=== PATIENT | female | born 1965 | race Asian ===

== ENCOUNTER 2017-12-11 11:35 | Inpatient (IN) | payer MEDICAID ==
[~2017-12-11] VITALS: Ht 167.6 cm; Wt 75.0 kg
[2017-12-11] MEDS ORDERED: SODIUM CHLORIDE 0.9% 1,000 ML IV ONE (11:54)
[2017-12-11 12:11] LABS: Basophils # (auto) 0 uL; Basophils % (auto) 0.5 % (0.0-2.0); Eosinophils # (auto) 0.1 uL; Eosinophils % (auto) 2.4 % (0.0-7.0); Hematocrit 37.3 % (36.0-46.0); Hemoglobin 12.8 g/dL (12.2-16.2); Lymphocytes # (auto) 1.7 uL; Lymphocytes % (auto) 36.4 % (10.0-50.0); Mean Corpuscular Hemoglobin 31.2 pg (28.0-32.0); Mean Corpuscular Hgb Conc. 34.4 g/dL (32.0-36.0); Mean Corpuscular Volume 90.7 fL (80.0-100.0); Monocytes # (auto) 0.4 uL; Neutrophils # (auto) 2.5 uL; Neutrophils % (auto) 52.7 % (37.0-80.0); Nucleated Red Blood Cells % 0.1 %; Platelet Count (auto) 210 10^3/uL (140-450); Red Blood Cells 4.11 10^6/uL (4.0-5.20); Red Cell Distribution Width 13.1 % (11.8-14.3); White Blood Cell 4.7 10^3/uL (4.4-10.8)
[2017-12-11] MEDS ORDERED: NALOXONE HCL 0.4 MG/ML VIAL ONE (12:19)
[2017-12-11 12:24] LABS: INR 0.95 (0.9-1.15); Partial Thromboplastin Time 24.2 sec (23.78-33.04); Prothrombin Time 10.2 sec (9.27-12.13)
[2017-12-11 12:30] LABS: Alanine Aminotransferase 44 U/L (13-56); Albumin 3.7 g/dL (3.4-5.0); Alkaline Phosphatase 95 U/L (45-117); Anion Gap 8 (5-15); Aspartate Aminotransferase 25 U/L (15-37); Bilirubin, Total 0.9 mg/dL (0.2-1.0); Blood Alcohol < 3.0 mg/dL (0-5); Blood Urea Nitrogen 11 mg/dL (7-18); Calcium 8.4 mg/dL (8.5-10.1); Carbon Dioxide 27 mmol/L (21-32); Chloride 106 mmol/L (98-107); GFR African American 132 mL/min; GFR Non-African American 109 mL/min; Glucose 118 mg/dL (74-106); Magnesium 2.5 mg/dL (1.6-2.6); Potassium 3.8 mmol/L (3.5-5.1); Sodium 141 mmol/L (136-145); Total Protein 7.1 g/dL (6.4-8.2)
[2017-12-11] MEDS ORDERED: NALOXONE HCL 0.4 MG/ML VIAL IV ONE (12:30)
[2017-12-11] MEDS ORDERED: FLUMAZENIL 0.1 MG/ML INJ 10ML MDV IV ONE (12:45)
[2017-12-11] MEDS ORDERED: SODIUM CHLORIDE 0.9% 500 ML IV ONE (12:45)
[2017-12-11 13:09] LABS: Urine Bacteria NONE SEEN /hpf (None Seen); Urine Blood Negative /uL (Negative); Urine Specific Gravity 1.014 (1.001-1.035); Urine WBC 1 /hpf (0 - 5)
[2017-12-11 13:11] LABS: Alcohol, Urine < 3.0 mg/dL (0-5); Amphetamine Screen, Urine NEGATIVE (NEGATIVE); Barbiturate Scree,Urine NEGATIVE (NEGATIVE); Benzodiazephine Screen, Urine POSITIVE (NEGATIVE); Cannabinoid Screen, Urine NEGATIVE (NEGATIVE); Cocaine Screen, Urine NEGATIVE (NEGATIVE); Opiate Scree,Urine NEGATIVE (NEGATIVE); Phencyclidine Screen, Urine NEGATIVE (NEGATIVE)
[2017-12-11] MEDS ORDERED: PROMETHAZINE HCL 25 MG/ML 1ML IV PRN (15:00)
[2017-12-11] MEDS ORDERED: ACETAMINOPHEN 500 MG TAB PO PRN (15:00)
[2017-12-11] MEDS ORDERED: MORPHINE SULFATE 8mg/ml INJ SDV IV PRN ×2 (15:00)
[2017-12-11] MEDS ORDERED: LACTULOSE 20Gm/30ML SOLN PO PRN (15:00)
[2017-12-11] MEDS ORDERED: NITROGLYCERIN 0.4 MG SL TAB SL PRN (15:00)
[2017-12-11] MEDS: SODIUM CHLORIDE 0.9% 1,000 ML IV SCH (15:04)
[2017-12-11] MEDS ORDERED: ASPirin 81 mg TAB PO ONE (15:30)
[2017-12-11] MEDS: ENOXAPARIN SOD 40 MG/0.4 ML SYRINGE SC SCH (15:33)
[2017-12-11 15:41] LABS: Folate (Folic Acid) 16.43 ng/mL (5.38-24)
[2017-12-11] MEDS ORDERED: TRAM50TA2 PO (18:05)
[2017-12-11] MEDS ORDERED: AMIT25TA9 PO (18:05)
[2017-12-11] MEDS: HYDROcodone-ACET 5/325MG TAB PO PRN (18:19)
[2017-12-11 20:00] VITALS: BP 113/68
[2017-12-11 22:00] VITALS: BP 113/68
[2017-12-12] MEDS: SODIUM CHLORIDE 0.9% 1,000 ML IV SCH ×2 (00:57→05:47)
[2017-12-12 05:12] VITALS: BP 123/75
[2017-12-12] MEDS: HYDROcodone-ACET 5/325MG TAB PO PRN (05:21)
[2017-12-12 06:39] LABS: Cholesterol 173 mg/dL (< 200); HDL Cholesterol 41 mg/dL (40-59); LDL Cholesterol 120 mg/dL (< 100); Triglycerides 155 mg/dL (< 150)
[2017-12-12 08:30] VITALS: BP 119/78
[2017-12-12] MEDS ORDERED: ASPirin 81 mg TAB PO SCH (10:00)
[2017-12-12] MEDS ORDERED: PANTOPRAZOLE 40 MG TAB PO SCH (10:00)
[2017-12-12] MEDS: ENOXAPARIN SOD 40 MG/0.4 ML SYRINGE SC SCH (10:14)
[2017-12-12 12:41] VITALS: BP 122/75
[2017-12-12 16:27] VITALS: BP 127/87
[2017-12-12 17:02] VITALS: BP 127/87
== END 2017-12-12 19:20 | disposition home or self-care (01) | DRG 812 ==
LOC: ER 11:35 → EDBD 11:35 → TELE 11:36 → TELE-CENTR 16:54
PROVIDERS: ADMIT Internal Medicine; ATTEND Internal Medicine
DX: T42.4X1A Poisoning by benzodiazepines, accidental (unintentional), initial encounter (principal); G93.41 Metabolic encephalopathy; G89.4 Chronic pain syndrome; J44.9 Chronic obstructive pulmonary disease, unspecified; K59.00 Constipation, unspecified; R00.1 Bradycardia, unspecified; R56.9 Unspecified convulsions; S69.81XA Other specified injuries of right wrist, hand and finger(s), initial encounter; X58.XXXA Exposure to other specified factors, initial encounter; Z82.49 Family history of ischemic heart disease and other diseases of the circulatory system; Z79.899 Other long term (current) drug therapy; Y93.89 Activity, other specified; Y92.89 Other specified places as the place of occurrence of the external cause; Y99.8 Other external cause status
CPT/HCPCS: 36415; 36600; 70450; 71045; 80053; 80061; 80307; 80320; 81001; 82140; 82550; 82607; 82746; 82805; 82962; 83735; 84443; 84484; 85025; 85610; 85652; 85730; 87081; 93005; 93306; 93886; 94761; 96361; 96374; 96375